=== PATIENT | male | born 2000 | race Two or more races ===

== ENCOUNTER 2024-03-16 11:08 | Emergency (ER) | payer BC, SELFPAY ==
[2024-03-16 11:10] VITALS: BP 152/120; PULSE 85; RESP 20; TEMP 36.8; O2SAT 99
--- NOTE | 2024-03-16 11:15 | RT.EKG_ITS ---
APPROVED REPORT Exam: Resting ECG Reason for Exam: Upper back/CP, palpitations Patient Location: E HR:62 bpm ECG Measurements Heart Rate 62 AXIS CO 109 P 44 QRSd 97 QRS 31 QT 396 T 42 QTc 401 Conclusion Sinus rhythm, rate 62 No interval abnormalities or ectopy No STEMI
--- NOTE | 2024-03-16 11:30 | DI.RAD_ITS ---
Exam(s) XR CHEST 2V PA LATERAL EXAM: XR CHEST 2V PA LATERAL CLINICAL HISTORY: Back pain, worse with breathing. TECHNIQUE: 2D digital imaging was performed. COMPARISON: No exams were available for comparison FINDINGS: 2 views: Heart size is normal. The mediastinum is not widened. Lungs are clear. No infiltrates nor pleural effusions. IMPRESSION: No acute pulmonary findings. DATA REPOSITORY: RADIATION DOSE DELIVERED:
[2024-03-16] MEDS: hydrOXYzine HCL 25 MG TAB PO (11:57)
[2024-03-16] MEDS: Ketorolac 15 MG/ML VIAL IM (11:59)
--- NOTE | 2024-03-16 12:12 | ED.GENADUL_ITS ---
Discharge Plan Disposition Patient Disposition: Home Condition: Stable Discharge Details Clinical Impression: Back pain, Anxiety Primary Care Provider: Komal,Local ED Provider: Leslie Slater Home Meds and New Rx's Prescriptions: New hydroxyzine HCl 25 mg tablet 25 mg PO TID PRNQty: 14 0RF Discharge Instructions Instructions: Upper Back Pain (DC) Additional Instructions: You were seen in the emergency department today for evaluation of back pain and anxiety. In our department you had a full physical examination performed, had an EKG that did not show any sign of damage to your heart, and had an x-ray with no abnormalities. You likely pulled a muscle, but also have some struggles with anxiety and panic disorder for which I provided you with a medication to be ta jaya as needed when you start to feel anxious or panicked. You may feel sleepy after this medication is administered, so avoid driving or operating machinery until you know how your body will be affected. I have provided you with a referral to establish with our primary care providers to discuss next [facility] management of your health conditions. Thank you for allowing us to be part of your care. Discharge Data Discharge Date/Time-TO BE ENTERED AT DEPARTURE: 03/16/24 12:24 HPI General Date/Time Provider Initiated Documentation: 03/16/24 11:19 . Limitations to Documentation: no limitations . Information obtained by: patient and old records reviewed . HPI Narrative: HPI: This is a 23-year-old male patient without significant past medical history besides anxiety who is presenting for evaluation of back pain. The patient reports that he believes that he injured a muscle when he was at the gym, or when twisting to lift his toddler out of the car seat. 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 The patient reports that he has a history of anxiety and feels panicky when he starts to have the symptoms, and begins to worry that he is having a heart attack. This causes him to breathe very quickly and he has to use breathing techniques to calm himself down. He states that he has tried Tylenol for management of this pain without improvement. The patient has otherwise been in his normal state of health without recent fever, injury, illness. States that he has been eating and drinking normally and has no other concerns today. Exam: Gen: Awake and alert, in no apparent distress HEENT: Non-icteric sclera Neck: Supple, no midline tenderness or step-offs, does have some tenderness to palpation over the left trapezius without palpable muscular spasms Lungs: No apparent respiratory distress, normal respiratory effort. Lung sounds clear and equal bilaterally with no wheezes, rhonchi, rales CV: Appears well perfused, heart with regular rate and rhythm, no murmurs auscultated, chest wall stable to palpation without crepitus, paradoxical movement, or significant tenderness Abdomen: Non-distended MSK: Moves 4 extremities without apparent limitation in ROM. No unilateral calf swelling or tenderness, no peripheral edema Skin: Visualized skin without rashes, cyanosis. Neuro: Normal Gait, no obvious focal deficits or facial asymmetry. Speaks in full, clear sentences. Psych: Appropriate for situation. MDM: This is a 23-year-old male patient presenting for evaluation of back pain. My differential includes but is not limited to muscular strain, muscular spasm (of nonpalpable), ligamentous sprain. I have a low concern for fracture or dislocation in this patient with no specific traumatic events. I considered ACS in this patient with occasional chest pain though he is young and without risk factors, and I reviewed his EKG which shows a sinus rhythm without ischemia, interval abnormality, or ectopy. I also believe that there is a component of the patient's self-reported anxiety driving some of his symptoms, and we discussed the breathing techniques and mindfulness techniques that he uses already and he was able to successfully utilize them in the emergency department exam room to calm his emotions and feel slightly improved. I did provide him with a dose of Toradol as well as a dose of hydroxyzine, and we will obtain a chest x-ray to evaluate for any abnormalities or injuries. At this time, I do not see an indication to proceed with laboratory studies. ED Course: Chest x-ray without osseous abnormalities or intrapulmonary abnormalities to account for the patient's symptoms. The patient reports that he feels significantly improved after the medications, but will require referral to establish with primary care for ongoing workup and management of his chronic health conditions. He understands to use Tylenol and ibuprofen for ongoing management of pain, and at this time, the patient has had a full medical evaluation and is safe for discharge to home. They are hemodynamically stable, ambulatory, and tolerating PO. They are understanding of the follow-up plan and return precautions. They left our facility without incident. Leslie Slater MD Related Data Home Medications ?Medication ?Instructions ?Recorded ?Confirmed hydroxyzine HCl 25 mg tablet 25 mg PO TID PRN #14 tabs 03/16/24 Previous Rx's ?Medication ?Instructions ?Recorded hydroxyzine HCl 25 mg tablet 25 mg PO TID PRN #14 tabs 03/16/24 Allergies Allergy/AdvReac Type Severity Reaction Status Date / Time No Known Allergies Allergy Verified 03/16/24 11:16 General Stated Complaint: Nk/Back Pain SIERRA: 3 Course Vital Signs Vital signs: Vital Signs Temperature 36.8 C 03/16/24 11:10 Pulse 85 03/16/24 11:10 Respiratory Rate 20 03/16/24 11:10 Blood Pressure 152/120 H 03/16/24 11:10 Pulse Oximetry 99 03/16/24 11:10 Temperature 36.8 C 03/16/24 11:10 Temperature Source Oral 03/16/24 11:10 Pulse 85 03/16/24 11:10 Respiratory Rate 20 03/16/24 11:10 Respiratory Effort Normal 03/16/24 11:59 Blood Pressure 152/120 H 03/16/24 11:10 Blood Pressure Position Sitting 03/16/24 11:10 Pulse Oximetry 99 03/16/24 11:10 Oxygen Delivery Method Room Air 03/16/24 11:10 Oxygen Flow Rate 0 03/16/24 11:10 Pain Level 7 03/16/24 11:59 Medical Decision Making Quality:SDOH Health Related Social Needs: No Data to Display PFSH All Active Problems (Updated 03/16/24 @ 12:13 by Leslie Slater MD) Anxiety (Chronic) Back pain (Acute) Social History Smoking/Tobacco Use Status: Never Smoking risk assessment performed?: Yes Alcohol Intake: never Substance use type: does not use
== END 2024-03-16 12:24 | disposition home or self-care (01) ==
LOC: ER 12:45
PROVIDERS: Emergency Provider Emergency Medicine
DX: M54.6 Pain in thoracic spine (principal); F41.9 Anxiety disorder, unspecified
CPT/HCPCS: 93005; 96372; 99285; 71046; 93010; 99284; J1885

== ENCOUNTER 2024-03-16 21:15 | Emergency (ER) | payer BC, SELFPAY ==
[2024-03-16 21:20] VITALS: BP 139/100; PULSE 74; RESP 20; TEMP 36.2; O2SAT 100
--- NOTE | 2024-03-16 21:23 | W.ED.GENAD ---
Discharge Plan Disposition Patient Disposition: Home Condition: Stable Discharge Details Clinical Impression: Spasm of thoracic back muscle Primary Care Provider: Komal,Local ED Provider: Claus Zimmerman Home Meds and New Rx's Prescriptions: New ketorolac 10 mg tablet 10 mg PO QID 5 Days Qty: 20 0RF Rx Instructions: maximum total duration of 5 days from all oral, intranasal, or parenteral formulations methocarbamol 750 mg tablet 750 mg PO QID 5 Days Qty: 20 0RF No Action hydroxyzine HCl 25 mg tablet 25 mg PO TID PRNQty: 14 0RF Discharge Instructions Instructions: Ketorolac (Systemic), Methocarbamol, Muscle Spasm ED Additional Instructions: You were seen in the emergency department for your thoracic muscle spasm. You need to treat this aggressively with 1000 mg of Tylenol every 6 hours, take the prescribed ketorolac [facility] between Tylenol dosings also every 6 hours. Take the prescribed methocarbamol for muscle relaxation, apply an [id number] lidocaine patch to the area for 12 hours each night, obtain rbye-smu-sonernw topical diclofenac or Voltaren gel to apply a couple times during the day to the area of pain, apply gentle heat and ice to the area and perform gentle massage to the area, I have sent to with a referral to physical therapy, you may seek care from physical therapy visits for pain relief if not relieved in the first few days. Please return to the emergency department for severe increase in pain despite treatment, or other emergent concerns. Stand Alone Forms: Physical Therapy Referral Discharge Data Discharge Date/Time-TO BE ENTERED AT DEPARTURE: 03/16/24 22:33 HPI General Date/Time Provider Initiated Documentation: 03/16/24 21:18. HPI Narrative: 23 year-old male presents to ED today by POV/ambulating with a chief complaint of back pain, seen earlier today- with anxiety, given hydroxyzine, with onset all day today. 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 Quality described as tension in his L paraspinal back from upper lumbar to shoulderblade, heart racing, no radiation to syncope, dizziness, diaphoresis, nausea, vomiting, cough, shortness of breath. Severity is described as severe. Palliating factors include nothing attempted- took Tylenol at 0400 today, was not able to fill hydroxyzine for anxiety. Provoking factors include nothing specific. Patient not anticoagulated. Related Data Home Medications ?Medication ?Instructions ?Recorded ?Confirmed hydroxyzine HCl 25 mg tablet 25 mg PO TID PRN #14 tabs 03/16/24 03/16/24 ketorolac 10 mg tablet 10 mg PO QID 5 days #20 tabs 03/16/24 methocarbamol 750 mg tablet 750 mg PO QID 5 days #20 tabs 03/16/24 Previous Rx's ?Medication ?Instructions ?Recorded hydroxyzine HCl 25 mg tablet 25 mg PO TID PRN #14 tabs 03/16/24 ketorolac 10 mg tablet 10 mg PO QID 5 days #20 tabs 03/16/24 methocarbamol 750 mg tablet 750 mg PO QID 5 days #20 tabs 03/16/24 Allergies Allergy/AdvReac Type Severity Reaction Status Date / Time No Known Allergies Allergy Verified 03/16/24 22:22 General Stated Complaint: Recheck SIERRA: 4 Review of Systems All systems reviewed & are unremarkable except as noted in HPI and below Exam Narrative Exam Narrative: GENERAL APPEARANCE: Well-nourished, non-toxic, awake and alert, atraumatic, no acute distress. SKIN: Warm, pink, dry, intact, without rashes/lesions/ulcerations. HEAD: Normocephalic, atraumatic, normal hair distribution for gender/age. EYES: Normal conjunctiva, no exudates on lids/lashes. ENT: Nares patent, no circumoral cyanosis, no facial swelling NECK: Supple, trachea midline, painless cervical ROM. LUNGS/CHEST: Lungs CTA bilaterally, non-labored respirations, normal A/P diameter, symmetrical expansion, no chest wall deformity HEART (CV/PV): Regular rate and rhythm without murmur, no peripheral edema, no JVD. ABDOMEN: Soft, non-distended, no guarding, no CVA tenderness bilaterally. MSK: Normal ROM, no swelling/deformity to bilateral UEs or LEs, moving all extremities without weakness, no cyanosis, spine midline without tenderness, normal curvature, palpable L thoracic muscular tension and tenderness, no midline vertebral tenderness/crepitus/step-offs. NEURO: Mental Status AAOx4 - alert to person, place, time, events No facial droop, no forehead involvement. Motor: No focal weakness - strength 5/5 in bilateral UEs and LEs, proximal and distal, symmetric. Sensory: sensation intact to light touch globally. Gait normal: patient ambulated without ataxia into ED room. PSYCH: euthymic, cooperative, pleasant, appropriate speech Course Vital Signs Vital signs: Vital Signs Temperature 36.2 C L 03/16/24 21:20 Pulse 74 03/16/24 21:20 Respiratory Rate 20 03/16/24 21:20 Blood Pressure 139/100 H 03/16/24 21:20 Pulse Oximetry 100 03/16/24 21:20 Temperature 36.2 C L 03/16/24 21:20 Temperature Source Temporal Artery Scan 03/16/24 21:20 Pulse 74 03/16/24 21:20 Respiratory Rate 20 03/16/24 21:20 Blood Pressure 139/100 H 03/16/24 21:20 Blood Pressure Position Sitting 03/16/24 21:20 Pulse Oximetry 100 03/16/24 21:20 Oxygen Delivery Method Room Air 03/16/24 21:20 Oxygen Flow Rate 0 03/16/24 21:20 Pain Level 9 03/16/24 21:20 Medical Decision Making This dictation utilizes [id number] dictation software and may contain unedited grammatical errors. 23 year-old male presents to ED today by POV/ambulating with a chief complaint of back pain, seen earlier today- with anxiety, given hydroxyzine, with onset all day today. 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 Quality described as tension in his L paraspinal back from upper lumbar to shoulderblade, heart racing, no radiation to syncope, dizziness, diaphoresis, nausea, vomiting, cough, shortness of breath. Severity is described as severe. Palliating factors include nothing attempted- took Tylenol at 0400 today, was not able to fill hydroxyzine for anxiety. Provoking factors include nothing specific. Patients' medical history: Negative, otherwise healthy. 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 Pertinent exam findings / vital signs include palpable left thoracic paraspinal muscle tension, nontachycardic, appears anxious. Differential / pathologies of concern include thoracic muscle strain, anxiety. Diagnostic studies of: -none, reviewed EKG and CXR from prior visit today, no acute findings. Interventions of: -1g IV Tylenol, 15mg IV ketorlac, 1mg IV Ativan for muscle relaxation, LidoDerm patch. Rx for 5 days of toradol and methocarbamol ED Course/Assessment/Plan: 23-year-old male presents with left-sided thoracic back pain, has heavy lifting history at work, was evaluated prior with normal EKG and chest x-ray, he has palpable paraspinal muscle tension and anxious state on arrival, he completely resolved with medications and I counseled him on relief of thoracic back spasm, provided PT referral and work note, counseled him on strict return criteria for failure to improve without treatment or any other emergent concerns. Findings not consistent with ACS, trauma, renal pathology. Disposition of Spasm of Thoracic Back Muscle Patient verbalized understanding of the plan and return to ED criteria and engaged in shared decision making. Medical Records Medical records reviewed: Yes I reviewed the patient's medical records. Quality:[facility] Health Related Social Needs: No Data to Display PFSH All Active Problems (Updated 03/16/24 @ 22:15 by PEPITO Deras) Spasm of thoracic back muscle (Acute) Anxiety (Chronic) Back pain (Acute) Social History Smoking/Tobacco Use Status: Current every day Tobacco Type: e-cigarettes Smoking risk assessment performed?: Yes Alcohol Intake: never Drug use: Daily Substance use type: marijuana Do you feel safe at home: Yes Do you feel safe in your relationship?: Yes
[2024-03-16] MEDS: ACETAMINOPHEN 1,000 MG/100 ML BTL 400 MG IVPB (21:56)
[2024-03-16] MEDS: LORazepam 2 MG/ML VIAL 1 MG IVP (21:57)
[2024-03-16] MEDS: Ketorolac 15 MG/ML VIAL IVP (21:57)
[2024-03-16] MEDS: Lidocaine 5% Patch 1 PATCH TP (21:57)
[2024-03-16] MEDS: Ondansetron 4 MG/2 ML VIAL IVP (21:57)
[2024-03-16 22:32] VITALS: BP 122/85; PULSE 60; RESP 18; O2SAT 100
== END 2024-03-16 22:33 | disposition home or self-care (01) ==
PROVIDERS: Emergency Provider Physician Assistant
DX: M54.6 Pain in thoracic spine (principal); M62.830 Muscle spasm of back; F17.290 Nicotine dependence, other tobacco product, uncomplicated
CPT/HCPCS: 96365; 96375; 99284; 99283; J0131; J1885; J2060; J2405

== ENCOUNTER 2024-05-11 09:34 | Emergency (ER) | payer BC, SELFPAY ==
[2024-05-11 09:44] VITALS: BP 154/90; PULSE 115; RESP 24; TEMP 36.6; O2SAT 97
--- NOTE | 2024-05-11 10:13 | DI.RAD_ITS ---
Exam(s) XR CHEST 2V PA LATERAL EXAM: XR CHEST 2V PA LATERAL CLINICAL HISTORY: 2 wks cough, SOB, c/f PNA TECHNIQUE: 2D digital imaging was performed. Two views. COMPARISON: No exams were available for comparison FINDINGS: HEART: Normal size. Aorta: Not dilated. PULMONARY VASCULATURE: Normal. MEDIASTINUM: Unremarkable. LUNGS: Clear. PLEURAL SPACE: No pleural effusion or pneumothorax. BONE:Unremarkable for age. SOFT TISSUES: Unremarkable. IMPRESSION: No acute abnormality. DATA REPOSITORY: RADIATION DOSE DELIVERED:
--- NOTE | 2024-05-11 10:38 | ED.GENADUL_ITS ---
Discharge Plan Disposition Patient Disposition: Home Condition: Stable Discharge Details Clinical Impression: Viral upper respiratory tract infection, Asthma Primary Care Provider: Komal,Local ED Provider: Leslie Slater Home Meds and New Rx's Prescriptions: New albuterol sulfate 90 mcg/actuation HFA aerosol inhaler 2 puff inhalation Q6H PRNQty: 6.7 0RF Discharge Instructions Instructions: Upper Respiratory Infection ED Additional Instructions: You were seen in the emergency department today for evaluation of stuffy and runny nose, cough, and sore throat and likely experiencing a viral infection. You had an x-ray that did not show any signs of pneumonia, and your COVID and influenza test was negative. It is safe for you to go home and to follow-up with your primary care provider and schedule an appointment for reassessment. I provided you with a prescription for albuterol inhaler which she can take as needed for shortness of breath or wheezing. Please return to the emergency department if you have any fevers that do not respond to medications, worsening shortness of breath, or any other symptoms that cause you concern. Thank you for allowing us to be part of your care. Stand Alone Forms: Work Release HPI General Mode of arrival: ambulatory . Date/Time Provider Initiated Documentation: 05/11/24 09:52 . Limitations to Documentation: no limitations . Information obtained by: patient and old records reviewed . HPI Narrative: HPI: This is a 24-year-old male patient with a past medical history of asthma who is presenting for evaluation of upper respiratory symptoms. The patient reports that for the last 2 weeks he has been sick with a stuffy and runny nose, sore throat, and cough with worsening shortness of breath. The patient reports that his kids have been sick, and he thinks he caught this from them. He has not had fevers, change in responsiveness, nausea or vomiting. Maintaining oral intake without difficulty. The patient reports that he recently moved here and does not have access to his albuterol inhaler, and has not been able to schedule an appointment with his primary care provider, though he was provided with a referral at his last ER visit. Exam: Gen: Awake and alert, in no apparent distress HEENT: Non-icteric sclera no conjunctival injection, PERRL, posterior pharynx with mild erythema but no asymmetry or exudates, full range of motion of the neck without meningismus. The patient has nasal congestion, sneezing during this provider's examination Neck: Supple Lungs: No apparent respiratory distress, normal respiratory effort. Lung sounds clear and equal bilaterally, cough appreciated during this provider's examination without production of sputum. CV: Appears well perfused, heart with regular rate and rhythm, strong distal pulses Abdomen: Non-distended MSK: Moves 4 extremities without apparent limitation in ROM Skin: Visualized skin without rashes, cyanosis. Neuro: Normal Gait, no obvious focal deficits or facial asymmetry. Speaks in full, clear sentences. Psych: Appropriate for situation. MDM: This is a 24-year-old male patient presenting for evaluation of upper respiratory symptoms. My differential includes but is not limited to upper respiratory infection, pneumonia, bronchitis. Certainly considered reactive airway disease exacerbation given his history though the patient is without wheezing or prolonged expiratory phase today. He has no hypoxia or significant work of breathing to suggest respiratory failure. No evidence of fluid overload to suggest pulmonary edema. He is maintaining his hydration and nutrition and I have a low concern for metabolic electrolyte derangement, kidney injury. We will obtain a x-ray to better characterize any abnormalities such as pneumonia, will obtain COVID and influenza testing ED Course: X-ray reveals no consolidations concerning for pneumonia, COVID and influenza testing negative. Symptoms are most concerning with viral URI, though I did provide the patient with a refill of his albuterol metered-dose inhaler, and encouraged him to reach out to his primary care provider to schedule a follow-up appointment. He can use Tylenol and ibuprofen as needed for management of symptoms such as pain or fever. At this time, the patient has had a full medical evaluation and is safe for discharge to home. They are hemodynamically stable, ambulatory, and tolerating PO. They are understanding of the follow-up plan and return precautions. They left our facility without incident. Leslie Slater MD Related Data Home Medications ?Medication ?Instructions ?Recorded ?Confirmed albuterol sulfate 90 mcg/actuation 2 puff inhalation Q6H PRN #6.7 05/11/24 aerosol inhaler grams Previous Rx's ?Medication ?Instructions ?Recorded albuterol sulfate 90 mcg/actuation 2 puff inhalation Q6H PRN #6.7 05/11/24 aerosol inhaler grams Allergies Allergy/AdvReac Type Severity Reaction Status Date / Time No Known Allergies Allergy Verified 05/11/24 09:52 General Stated Complaint: RespSymp SIERRA: 3 Course Vital Signs Vital signs: Vital Signs Temperature 36.6 C 05/11/24 09:44 Pulse 115 H 05/11/24 09:44 Respiratory Rate 24 05/11/24 09:44 Blood Pressure 154/90 H 05/11/24 09:44 Pulse Oximetry 97 05/11/24 09:44 Temperature 36.6 C 05/11/24 09:44 Temperature Source Temporal Artery Scan 05/11/24 09:44 Pulse 115 H 05/11/24 09:44 Respiratory Rate 24 05/11/24 09:44 Respiratory Effort Non-Labored, Short of Breath 05/11/24 10:12 Respiratory Depth Normal 05/11/24 10:11 Blood Pressure 154/90 H 05/11/24 09:44 Blood Pressure Position Sitting 05/11/24 09:44 Pulse Oximetry 97 05/11/24 09:44 Oxygen Delivery Method Room Air 05/11/24 09:44 Oxygen Flow Rate 0 05/11/24 09:44 Pain Level 0 05/11/24 09:44 Medical Decision Making Quality:SDOH Health Related Social Needs: No Data to Display PFSH All Active Problems (Updated 05/11/24 @ 10:40 by Leslie Slater MD) Asthma (Chronic) Viral upper respiratory tract infection (Acute) Social History Smoking/Tobacco Use Status: Current every day Tobacco Type: e-cigarettes Smoking risk assessment performed?: Yes Alcohol Intake: never Drug use: Daily Substance use type: marijuana Do you feel safe at home: Yes Do you feel safe in your relationship?: Yes
[2024-05-11 10:49] VITALS: BP 115/63; PULSE 77; RESP 18; TEMP 36.6; O2SAT 99
== END 2024-05-11 10:49 | disposition home or self-care (01) ==
PROVIDERS: Emergency Provider Emergency Medicine
DX: R06.02 Shortness of breath; J06.9 Acute upper respiratory infection, unspecified; J45.909 Unspecified asthma, uncomplicated; R05.1 Acute cough; R07.0 Pain in throat; F17.290 Nicotine dependence, other tobacco product, uncomplicated
CPT/HCPCS: 99283; 71046; 99284

== ENCOUNTER 2024-08-16 00:22 | Emergency (ER) | payer BC, SELFPAY ==
[2024-08-16 00:26] VITALS: BP 130/81; PULSE 70; RESP 18; TEMP 36.5; O2SAT 98
[2024-08-16 00:32] VITALS: BP 130/81; PULSE 70; RESP 18; TEMP 36.5; O2SAT 98
[2024-08-16 01:20] LABS: COVID-19 PCR Negative (Negative); Influenza A PCR Negative (Negative); Influenza B PCR Negative (Negative); RSV PCR Negative (Negative)
--- NOTE | 2024-08-16 01:20 | W.ED.GENAD ---
Discharge Plan Disposition Patient Disposition: Home Condition: Good Discharge Details Clinical Impression: Strep throat, Sinusitis Primary Care Provider: Komal,Local ED Provider: Claus Wilson Home Meds and New Rx's Prescriptions: New amoxicillin-pot clavulanate 875-125 mg tablet 1 tab PO BID 6 Days Qty: 12 0RF No Action albuterol sulfate 90 mcg/actuation HFA aerosol inhaler 2 puff inhalation Q6H PRNQty: 6.7 0RF Discharge Instructions Instructions: Sore Throat, Adult ED Additional Instructions: At this time you have evidence of strep throat. Please take the antibiotic up Augmentin as prescribed. Please take Tylenol and Motrin as needed for pain and fever. Drink plenty fluids and stay well-hydrated. If you notice any worsening of your symptoms, or any new symptoms such as vomiting, diarrhea, fever, chills, shortness of breath, chest pain, numbness, weakness, or fainting , please return immediately to the emergency department for reevaluation. Please follow up with your primary care provider as soon as possible for reassessment and reevaluation. As always, it was a pleasure participating in your medical care today. Stand Alone Forms: Work Release HPI General Date/Time Provider Initiated Documentation: 08/16/24 00:27. HPI Narrative: 24-year-old male with a past medical history of reactive airway disease, tobacco use, presents today for cough, runny nose, congestion. Patient states that has been present for the last 3 days, he is notable mucopurulent discharge coming from his nose. His throat has been notably sore. He admits to generalized chills and achiness. Cough is productive as well. He denies any hemoptysis. No headache or posterior neck pain. No other complaints at this time. No difficulty swallowing or drinking. No other complaints at this time. Related Data Home Medications ?Medication ?Instructions ?Recorded ?Confirmed albuterol sulfate 90 mcg/actuation 2 puff inhalation Q6H PRN #6.7 05/11/24 08/16/24 aerosol inhaler grams amoxicillin 875 mg-potassium 1 tab PO BID 6 days #12 tabs 08/16/24 clavulanate 125 mg tablet Previous Rx's ?Medication ?Instructions ?Recorded albuterol sulfate 90 mcg/actuation 2 puff inhalation Q6H PRN #6.7 05/11/24 aerosol inhaler grams amoxicillin 875 mg-potassium 1 tab PO BID 6 days #12 tabs 08/16/24 clavulanate 125 mg tablet Allergies Allergy/AdvReac Type Severity Reaction Status Date / Time No Known Allergies Allergy Verified 08/16/24 00:35 General Stated Complaint: RespSymp SIERRA: 3 Exam Narrative Exam Narrative: 1.Const: Well-nourished, Well-developed, appearing stated age 2.Eyes: PERRL, no conjunctival injection, and symmetrical lids. 3.ENT: Atraumatic external nose and ears. Moist MM. Neck: Symmetric, trachea midline, No thyromegaly. Patient does have notably enlarged tonsils, they are erythematous, right tonsil is larger than the left. Mild tonsillar exudates are present. Uvula is midline with no deviation. Clear and vinson pearly tympanic membranes bilaterally. No difficulty with phonation, no difficulty controlling secretions. No nuchal rigidity or neck stiffness 4.CVS: +S1/S2, Peripheral pulses 2+ and equal in all extremities. Brisk capillary refill in all extremities. 5.RESP: Unlabored respiratory effort. Clear to auscultation bilaterally. No wheezes rales or rhonchi 6.GI: Soft, Nontender/Nondistended, No hepatosplenomegaly. No guarding or rebound. 7.MSK: Normocephalic/Atraumatic, Extremities w/o deformity or ttp No cyanosis or clubbing, Normal movement of all extremities 8.Skin: Warm, Dry. No rashes or lesions. 9.Neuro: reimbursement representative II-XII grossly intact. Sensation grossly intact, no focal neurologic deficits. 10.Psych: (AAO) x3. Appropriate mood and affect Course Vital Signs Vital signs: Vital Signs Temperature 36.5 C 08/16/24 00:26 Pulse 70 08/16/24 00:26 Respiratory Rate 18 08/16/24 00:26 Blood Pressure 130/81 08/16/24 00:26 Pulse Oximetry 98 08/16/24 00:26 Temperature 36.5 C 08/16/24 00:32 Temperature Source Temporal Artery Scan 08/16/24 00:32 Pulse 70 08/16/24 00:32 Respiratory Rate 18 08/16/24 00:32 Respiratory Effort Normal, Non-Labored 03/12/25 00:32 Respiratory Depth Normal 08/16/24 00:32 Blood Pressure 130/81 08/16/24 00:32 Blood Pressure Position Sitting 08/16/24 00:32 Pulse Oximetry 98 08/16/24 00:32 Oxygen Delivery Method Room Air 08/16/24 00:32 Oxygen Flow Rate 0 08/16/24 00:32 Pain Level 0 08/16/24 00:32 Lab/Test Results Lab/Test Results: POC Strep Test-CRISTHIAN(Rapid) Start: 08/16/24 00:52 Freq: .Rapid Strep Test Status: Active Protocol: Document 08/16/24 01:02 MG (Rec: 08/16/24 01:02 MG [id number]) Strep test-CRISTHIAN(Rapid)-POC POC-Strep test-CRISTHIAN (Rapid) Positive POC-Strep test-CRISTHIAN (Rapid) Positive Medical Decision Making 24-year-old male with a past medical history of reactive airway disease, tobacco use, presents today for cough, runny nose, congestion. Patient states that has been present for the last 3 days, he is notable mucopurulent discharge coming from his nose. His throat has been notably sore. He admits to generalized chills and achiness. Cough is productive as well. He denies any hemoptysis. No headache or posterior neck pain. No other complaints at this time. No difficulty swallowing or drinking. No other complaints at this time. Exam demonstrates erythema in the posterior oropharynx, tonsillar enlargement with exudate and erythema. No evidence of peritonsillar abscess. Uvula midline. No difficulty controlling secretions. No evidence of Ludewig's angina. Symptoms are concerning for strep throat. Will test for this, and also test for flu COVID and RSV. Will monitor closely and reassess. 1:25 AM Strep test is positive, COVID flu and RSV negative. Due to the notable mucopurulent discharge from nares, and his strep positive status, we will treat for sinusitis and strep. Will give Augmentin, dose here, dose to go, and a prescription for home. Will give 800 mg of ibuprofen. Recommend continued supportive therapy outpatient. Discussed red flags which to return. I have extensively reviewed the treatment plan and discharge instructions with the patient. I have addressed all patient concerns at this time. The patient was made aware of what symptoms to monitor for that would warrant a return to the emergency department. Discussed the plan with the patient, they demonstrate verbal understanding and agreement with our assessment and plan at this time. The documentation in this chart was dictated using [employer] dictation software. Please excuse any dictation errors. Quality:SDOH Health Related Social Needs: No Data to Display PFSH All Active Problems (Updated 08/16/24 @ 01:27 by Claus Wilson DO) Sinusitis (Acute) Strep throat (Acute) Social History Smoking/Tobacco Use Status: Current every day Tobacco Type: cigarettes and e-cigarettes Smoking risk assessment performed?: Yes Alcohol Intake: never Drug use: Occasionally Substance use type: marijuana Housing: house Do you feel safe at home: Yes Do you feel safe in your relationship?: Yes
[2024-08-16 01:22] LABS: Source Nasopharynx
[2024-08-16] MEDS: Amox. 875/Clav. 125, 2 TABS/BTL 1 TAB PO (01:31)
[2024-08-16] MEDS: Ibuprofen 800 MG TAB PO (01:31)
== END 2024-08-16 01:34 | disposition home or self-care (01) ==
LOC: ER 01:44
PROVIDERS: Emergency Provider Student in an Organized Health Care Education/Training Program
DX: J02.0 Streptococcal pharyngitis (principal); J01.90 Acute sinusitis, unspecified
CPT/HCPCS: 87637; 99283

== ENCOUNTER 2025-05-05 06:53 | Emergency (ER) | payer SELFPAY ==
[2025-05-05 07:00] VITALS: BP 157/96; PULSE 110; RESP 14; TEMP 36.6; O2SAT 98
--- NOTE | 2025-05-05 07:11 | ED.GENADUL_ITS ---
Discharge Plan Disposition Patient Disposition: Home Discharge Details Clinical Impression: Acute streptococcal pharyngitis Primary Care Provider: Komal,Local ED Provider: Dony Musa Home Meds and New Rx's Prescriptions: New penicillin V potassium 500 mg tablet 500 mg PO BID 10 Days Qty: 20 0RF albuterol sulfate [Ventolin HFA] 90 mcg/actuation HFA aerosol inhaler 2 puff inhalation Q6H PRNQty: 8.5 0RF Continued albuterol sulfate 90 mcg/actuation HFA aerosol inhaler 2 puff inhalation Q6H PRNQty: 6.7 0RF Discharge Instructions Additional Instructions: You were seen in the emergency department for your sore throat. You are found to have a strep infection for which you are receiving antibiotics that you should take as directed. As we discussed, if you develop shortness of breath difficulty swallowing or if you have any other concerns please return to the emergency department. You will receive a call if your COVID swab returns positive. If you do not hear from us then no news is good news. For your pain please take medications as follows: 1. Take acetaminophen (Tylenol), 1,000 mg (two 500 mg tabs) every 6 hours [2. Take ibuprofen (Advil), 400 mg every 6 hours.] Stand Alone Forms: Portal Information, Work Release Discharge Data Discharge Date/Time-TO BE ENTERED AT DEPARTURE: 05/05/25 07:44 HPI General Date/Time Provider Initiated Documentation: 05/05/25 07:11 . HPI Narrative: MDM This is overall very well-appearing initially tachycardic but normothermic 25-year-old male found to be strep pharyngitis positive for which he will receive penicillin 500 mg twice daily for 10 days and dexamethasone prior to empiric trial of discharge with expectant outpatient management. Uvula midline making my suspicion low for peritonsillar abscess. Handling secretions so doubt epiglottitis. Nontoxic making my suspicion low for bacterial tracheitis. Good range of motion of the neck so doubt retropharyngeal abscess. Clear equal breath sounds with no wheezes so I am not suspicious for exacerbation of reactive airway disease. Patient does request refill of inhaler so we will send this to his pharmacy. Patient is also been swabbed for COVID influenza and RSV and will call patient if results are positive. No brawny edema submentally to suggest Abhilash's angina. In the absence of fevers my suspicion is lower for infective mononucleosis. No [place] spots to suggest measles. 3 PM COVID results negative. Tachycardia resolved blood pressure normalized prior to discharge. HPI This is a patient with a history of respiratory issues presenting with a sore throat. The patient reports the onset of his sore throat approximately 3 days ago, with symptoms now localized to his tonsils. He has observed significant redness in the area. The patient mentions that his [id number] had COVID-19 about 5 days ago, and his was very sick during gi, experiencing vomiting and nausea. Additionally, all of his children, who are under the age of 4, have been ill due to a virus contracted at daycare. The patient works at a fast food restaurant. He has experienced a temperature of 99?F at home, although it was 97?F upon arrival at the clinic. He also reports episodes of vomiting. He has been unable to locate his albuterol inhaler and requires a refill. Exam General: Well-appearing in no acute distress speaking in complete sentences. Head: Normocephalic, atraumatic. Eye: Extraocular eye movements intact. No conjunctival injection. No scleral icterus. Ear, nose, mouth, throat: Posterior oropharynx erythema. Uvula midline. No significant tonsillar exudates. No brawny edema submentally. Neck: Trachea midline. Good range of motion in neck. Cardiovascular: Well-perfused distal extremities. Respiratory: Nonlabored respiration. Clear lungs bilaterally. Gastrointestinal: Nondistended abdomen. Musculoskeletal: No edema. Moving all 4 extremities spontaneously. Skin: Normal for age and race, grossly normal temperature and turgor. No acute rash. Neurologic: Alert and appropriate, no apparent acute deficits. Psychiatric: Mood and manner are appropriate. Grooming and personal hygiene are appropriate. Related Data Home Medications ?Medication ?Instructions ?Recorded ?Confirmed albuterol sulfate 90 mcg/actuation 2 puff inhalation Q 6H PRN #6.7 05/11/24 05/05/25 aerosol inhaler grams albuterol sulfate 90 mcg/actuation 2 puff inhalation Q 6H PRN #8.5 05/05/25 aerosol inhaler (Ventolin HFA) grams penicillin V potassium 500 mg 500 mg PO BID 10 days #2 0 tabs 05/05/25 tablet Previous Rx's ?Medication ?Instructions ?Recorded albuterol sulfate 90 mcg/actuation 2 puff inhalation Q 6H PRN #6.7 05/11/24 aerosol inhaler grams albuterol sulfate 90 mcg/actuation 2 puff inhalation Q 6H PRN #8.5 05/05/25 aerosol inhaler (Ventolin HFA) grams penicillin V potassium 500 mg 500 mg PO BID 10 days #2 0 tabs 05/05/25 tablet Allergies Allergy/AdvReac Type Severity Reaction Status Date / Time No Known Allergies Allergy Verified 05/05/25 07:03 General Stated Complaint: Sorethroat SIERRA: 4 Course Vital Signs Vital signs: Vital Signs Temperature 36.6 C 05/05/25 07:00 Pulse 110 H 05/05/25 07:00 Respiratory Rate 14 05/05/25 07:00 Blood Pressure 157/96 H 05/05/25 07:00 Pulse Oximetry 98 05/05/25 07:00 Temperature 36.6 C 05/05/25 07:00 Temperature Source Oral 05/05/25 07:00 Pulse 110 H 05/05/25 07:00 Respiratory Rate 14 05/05/25 07:00 Blood Pressure 157/96 H 05/05/25 07:00 Blood Pressure Position Sitting 05/05/25 07:00 Pulse Oximetry 98 05/05/25 07:00 Oxygen Delivery Method Room Air 05/05/25 07:00 Oxygen Flow Rate 0 05/05/25 07:00 PFSH All Active Problems (Updated 05/05/25 @ 07:32 by Dony Musa MD) Acute streptococcal pharyngitis (Acute) Social History Smoking/Tobacco Use Status: Current every day Tobacco Type: cigarettes and e- cigarettes Smoking risk assessment performed?: Yes Alcohol Intake: never Drug use: Occasionally Substance use type: marijuana Housing: house Do you feel safe at home: Yes Do you feel safe in your relationship?: Yes
[2025-05-05] MEDS: Acetaminophen 500 MG TAB 1000 MG PO (07:31)
[2025-05-05] MEDS: Dexamethasone 4 MG TAB 8 MG PO (07:31)
[2025-05-05] MEDS: Penicillin V POTASSIUM 500 MG TAB PO (07:31)
[2025-05-05 07:34] VITALS: BP 136/70; PULSE 78; RESP 18; O2SAT 99
[2025-05-05 08:03] LABS: COVID-19 PCR Negative (Negative); RSV PCR Negative (Negative)
== END 2025-05-05 07:44 | disposition home or self-care (01) ==
PROVIDERS: Emergency Provider Emergency Medicine
DX: J02.0 Streptococcal pharyngitis (principal)
CPT/HCPCS: 87637; 87880; 99283; J8540